=== PATIENT | male | born 1990 | race Caucasian/White ===

== ENCOUNTER 2020-07-30 22:19 | Emergency (ER) | payer BC, SELFPAY ==
--- NOTE | 2020-07-30 22:21 | XR_ITS ---
WS: [id number] Left ankle, 3 views, 07/30/2020 Clinical Data: injury Comparison: None. Findings: No fractures or dislocations are seen. The ankle mortise is normal. The talus and calcaneus are unrem arkable. No soft tissue swelling over the medial or lateral malleolus is seen. XR/XR ankle LT min 3V* [id number] Impression: Negative left ankle.
[2020-07-30 22:30] VITALS: BP 137/80; PULSE 74; RESP 14; TEMP 36.8; O2SAT 98; BMI 27.0
--- NOTE | 2020-07-30 22:32 | ED_ITS ---
HPI - Extremity Injury (Lower) General: Chief Complaint: Extremity Injury, Lower Stated Complaint: L ANKLE INJURY Time Seen by Provider: 07/30/20 22:29 Source: patient Mode of arrival: ambulatory Limitations: no limitations History of Present Illness: HPI Narrative: Patient comes in for injury to the left ankle. Patient states he was playing basketball and the ankle turned inw ards on him. Patient has had previous injuries to the ankle. Patient appears well. No obvious injury is noted. Patient does have some mild swelling to the lateral ankle area. Review of Systems General: Reports: 10 or more systems reviewed and unremarkable except in HPI and below Musc: Reports: extremity pain PFS ED PFSH: Family History (Updated 01/07/20 @ 08:57 by LELA Campbell) Father Hypertension Social History (Updated 01/07/20 @ 08:58 by LELA Campbell) Smoking and tobacco status: former smoker Alcohol intake: never Adopted: No Caregiver/support person: No Lives independently: No Household members: spouse Marital status: Current occupational status: employed History of recent travel: No Physical Exam Const: COMMON NORMALS: no acute distress and patient oriented x3 GENERAL APPEARANCE: cooperative HENMT: COMMON NORMALS: normocephalic and Normal external nose present HEAD & SCALP: normal to inspection and normocephalic NOSE: Normal external nose present Eye: GENERAL EYE: appearance normal, both eyes and all related structures Neck/C-Spine: COMMON NORMALS: full ROM Chest: COMMONS NORMALS: normal inspection of the chest Resp: COMMON NORMALS: normal respiratory effort EFFORT & INSPECTION: Yes able to speak in complete sentences Cardio: COMMON NORMALS: regular rate and regular rhythm RATE: regular rate RHYTHM: regular rhythm GI: COMMON NORMALS: non-tender Back/Pelvis: COMMON NORMALS: thoracic and lumbar spine normal to inspection Extremity: NARRATIVE EXTREMITY EXAM: Lateral ankle swelling. Posterior ankle bilateral tenderness. Prompt capillary refill is noted. Neuro: COMMON NORMALS: patient oriented x3 and moves all extremities Psych: COMMON NORMALS: mental status grossly normal and cooperative Skin: COMMON NORMALS: no rashes or lesions noted GENERAL SKIN EXAM: no rashes or lesions noted Course Vital Signs: Vital signs: Vital Signs Temperature 98.3 F 07/30/20 22:30 Pulse Rate 83 07/30/20 22:38 Respiratory Rate 14 07/30/20 22:38 Blood Pressure 132/74 07/30/20 22:38 Pulse Oximetry 100 07/30/20 22:38 MDM - Extremity Injury (Lower) MDM Narrative: Medical decision making narrative: Patient comes in for evaluation of ankle injury. On exam there is tenderness and swelling to the lateral and posterior aspects of the left ankle. No obvious deformity or dislocation is noted. Differential diagnosis includes but not limited to fracture, sprain, contusion. X-rays were negative for fracture. Reviewed exam with patient with recommendations for treatment and follow-up. Recommended a stirrup splint and activity as tolerated. Recommended acetaminophen and ibuprofen otherwise for pain. Patient reported understanding of care plan and need for follow-up. Discharge Plan Discharge Patient Disposition: Home Clinical Impression: Ankle sprain and strain Condition: Stable Discharge Orders: Discharge Order (Routine); Ordered 07/30/20 Ordered By: Servando Mahoney Referrals: Aki Fairchild DC [Family Provider] - Vida Garrett FNP [Primary Care Provider] - Discharge Diet: Usual diet Discharge Activity: Increase activity as tolerated Patient Instructions: Ankle Sprain (ED) Activity Restrictions/Additional Instructions: U stirrup splint until you can comfortably run without difficulty. Use acetaminophen and ibuprofen for pain. Use ice for further pain relief. Follow- up with primary care for further evaluation and treatment. Return to the emergency department for new concerns. Coding Level of Care Code ED Supervisor Grading for Junie Rodríguez Exam Comprehensive
[2020-07-30 22:38] VITALS: BP 132/74; PULSE 83; RESP 14; O2SAT 100
== END 2020-07-30 23:14 | disposition home or self-care (01) ==
PROVIDERS: Emergency Provider Nurse Practitioner Family; Family Provider Chiropractor; PCP Nurse Practitioner Family
DX: S93.402A Sprain of unspecified ligament of left ankle, initial encounter (principal); S96.912A Strain of unspecified muscle and tendon at ankle and foot level, left foot, initial encounter; Z87.891 Personal history of nicotine dependence; X50.1XXA Overexertion from prolonged static or awkward postures, initial encounter
CPT/HCPCS: 12345; 73610; 99281; 99283